=== PATIENT | female | born 1970 | race African-American/Black ===

== ENCOUNTER 2017-12-25 05:00 | Inpatient (IN) | payer BC ==
[2017-12-24 13:30] VITALS: BMI 36.1
[2017-12-25 09:19] LABS: ALBUMIN 3.4 g/dl (3.4-5.0); ALK PHOS 58 U/L (45-117); BILIRUBIN,DIRECT < 0.2 mg/dL (0.0-0.2); BILIRUBIN,TOTAL 0.1 mg/dL (0.2-1.0); SGOT/AST 23 U/L (15-37); SGPT/ALT 16 U/L (12-78); TOT PROT 6.5 g/dl (6.4-8.2)
[2017-12-25] MEDS ORDERED: DEXAMETHASONE SOD PHOSPHATE/PF 10 MG/ML SDV ONE (10:28)
[2017-12-25] MEDS ORDERED: ROPIVACAINE HCL 0.5% 30ML VIAL ONE (10:28)
[2017-12-25] MEDS ORDERED: MIDAZOLAM HCL 2 MG/2 ML SINGLE DOSE VIAL ONE ×3 (10:31→12:46)
[2017-12-25] MEDS ORDERED: IBUPROFEN 800 MG/8 ML IJ IVPB PRN (10:37)
[2017-12-25] MEDS ORDERED: ONDANSETRON 4 MG/2 ML VIAL IVPUSH PRN (10:37)
[2017-12-25] MEDS ORDERED: IBUPROFEN 600 MG TABLET (FP) PO PRN (10:37)
--- NOTE | 2017-12-25 10:37 | HP ---
History & Physical Update - History History: No Change - Physical Physical: No Change - Assessment Assessment: No Change - Plan Plan: No Change (History reviewed and unchanged from the one in the chart. Consent signed and witnessed)
[2017-12-25] MEDS ORDERED: PROPOFOL 20 ML ONE (12:46)
[2017-12-25] MEDS ORDERED: fentaNYL CITRATE 250 MCG/5 ML VIAL ONE (12:46)
[2017-12-25] MEDS ORDERED: ROCURONIUM BROMIDE 50 MG/5 ML VIAL ONE ×2 (12:47→13:26)
[2017-12-25] MEDS ORDERED: ceFAZolin SODIUM 1 GM VIAL IVPB ONE (12:49)
[2017-12-25] MEDS ORDERED: GLYCOPYRROLATE 0.2 MG/1 ML VIAL ONE (14:55)
[2017-12-25] MEDS ORDERED: ceFAZolin SODIUM 1 GM VIAL ONE (14:56)
[2017-12-25] MEDS ORDERED: DEXAMETHASONE SOD PHOSPHATE 4 MG/1 ML VIAL ONE (14:56)
[2017-12-25] MEDS ORDERED: NEOSTIGMINE METHYLSULFATE 0.5 MG/ML - 10 ML MDV ONE (14:56)
[2017-12-25] MEDS ORDERED: ETOMIDATE 20 MG/10 ML AMPUL IVPUSH ONE (14:56)
[2017-12-25] MEDS ORDERED: PROMETHAZINE HCL 25 MG/1 ML VIAL IVPB PRN (15:34)
[2017-12-25] MEDS ORDERED: LACTATED RINGERS SOLUTION 1,000 ML IV SCH (15:45)
--- NOTE | 2017-12-25 15:55 | OP ---
Operative Note - Note: Operative Date: 12/25/17 Pre-Operative Diagnosis: 47yo with large fibroid uterus, menorhagia, anemia Operation: Supracervical Hysterectomy, bilateral salpingectomy Findings: 25cm large adenomyotic fibroid uterus Sent to Path - grossly no evidence of sarcoma or Endometrial CA Post-Operative Diagnosis: Same as Pre-op Surgeon: Urvashi Wilder Dental Technician Metal: Tu Hope Anesthesia: General Specimens Removed: Uterus. Bilateral fallopian tubes Estimated Blood Loss (mls): 350 Drains, Volume Out (mls): 400 Fluid Volume Replaced (mls): 2,200 Operative Report Dictated: Yes
[2017-12-25] MEDS ORDERED: IBUPROFEN 800 MG/8 ML IJ IVPB ONE (16:05)
[2017-12-25] MEDS ORDERED: HYDROmorphone *PCA* 10MG/50ML DISP.SYRIN PCA ONE (17:58)
[2017-12-25] MEDS ORDERED: DEXAMETHASONE SOD PHOSPHATE 4 MG/1 ML VIAL IVPUSH ONE (18:06)
[2017-12-25] MEDS ORDERED: HYDROmorphone *PCA* 10MG/50ML DISP.SYRIN PCA SCH (18:15)
[2017-12-25] MEDS: ELECTROLYTE-148 SOLN 1,000 ML IV SCH (19:30)
--- NOTE | 2017-12-26 01:21 | OP ---
DATE OF OPERATION: 12/25/2017 PREOPERATIVE DIAGNOSIS: A 47-year-old female with large fibroid uterus, menorrhagia, anemia, adenomyosis. POSTOPERATIVE DIAGNOSIS: A 47-year-old female with large fibroid uterus, menorrhagia, anemia, adenomyosis. OPERATION: Supracervical hysterectomy and bilateral salpingectomy. SURGEON: Urvashi Wilder MD JOURNEYMAN SHEET METAL WORKER: Tu Hope MD ANESTHESIA: General. SPECIMENS REMOVED: Uterus and bilateral fallopian tubes. DESCRIPTION OF OPERATIVE PROCEDURE: After assuring informed consent, patient was brought to the operating room and after obtaining appropriate level of anesthesia, abdomen was prepped and draped in the sterile fashion. A Miller catheter was placed prior to prepping and draping. Subsequently, Pfannenstiel skin incision was created with a scalpel and extended bilaterally with scalpel and subsequently the subcutaneous layer was dissected to the level of the fascia with Bovie cautery. Fascia was incised and extended bilaterally with Bovie cautery and subsequently dissected anteriorly and superiorly with Bovie cautery. Muscle was in the midline, tented, and incised with Bovie cautery as well. Dissected inferiorly. Peritoneum was grasped with two Miley clamps and incised with Metzenbaum scissors with good visualization of underlying organs. Subsequently, peritoneal incision was extended superiorly and inferiorly with Bovie cautery. A bladder was retracted with Tari and the uterus was exteriorized. It was found to be approximately 25 cm tall and approximately 25 cm wide. The Deavers were used to retract neighboring organs. The round ligament on the right side was cauterized with LigaSure and LigaSure was also used to create the bowel flap and dissect the left-sided round ligament. The serosa was dissected around the uterine corpus and uteroovarian ligament was skeletonized by creating a window in the broad ligament. The right fallopian tube was dissected off of the right adnexa with LigaSure and subsequently the uteroovarian ligament was dissected off of the uterine corpus. The LigaSure was used and subsequently the uteroovarian ligament was clamped with Gilberto clamp, tied with 0 Vicryl, and suture ligated with 0 Vicryl, and tucked behind the bowel into the abdomen. Subsequently, the uterine artery on the right was skeletonized and clamped with Gilberto clamp, ligated with LigaSure and subsequently suture ligated as well with 0 Vicryl. A second clamp was placed to further dissect the uterine artery. It was dissected further off of the cervix with good visualization of the underlying organs and suture ligated with 0 Vicryl. Identical procedure was performed on the patient's left. The left fallopian tube was dissected off of the left adnexa and sent for permanent pathology and uteroovarian ligament was also dissected intact and suture ligated. Excellent hemostasis was achieved. The left uterine artery was also skeletonized and suture ligated with 0 Vicryl and dissected further with a second downward clamp with Gilberto and 0 Vicryl suture. Subsequently, bladder was further dissected off of the cervix. Uteroovarian ligaments were cauterized with LigaSure bilaterally. One more clamp was placed downward on the cervix and uterine artery was further deflected and that clamp was suture ligated as well on each side. Subsequently the uterus portion of the cervix was dissected off of the remaining cervical stump and sent for pathology. Excellent hemostasis was visualized. The cervical stump was oversewn with 0 Vicryl [id number]. Abdomen was subsequently irrigated. All pedicles were found to be hemostatic. Bilateral ureters were palpated and found to be normal in size, running its natural course. Peritoneum was sutured subsequently after all instruments and sponges were removed from the abdomen. The abdomen was found to be hemostatic. Peritoneum was closed with 0 Vicryl. Muscle was reapproximated at the midline with 0 Vicryl. Fascia was closed with 0 Vicryl as well in the running fashion. Subsequently, the subcutaneous tissue was reapproximated with 3-0 Vicryl subcutaneous and then subcuticular sutures were placed to decrease the space subcutaneously. Lastly, the V-Loc 90-inch 4 Biosyn was used to create a subcuticular closure. All instruments and sponges were counted several times and counts were correct. Estimated blood loss was 350 mL. Patient put out 400 mL of clear urine and received 2200 mL of IV fluids. She was subsequently extubated and brought to the recovery room in stable condition. Ottoniel [id number]
[2017-12-26] MEDS: CEFAZOLIN 1 GM/D5W 1 GM/50 ML BAG IVPB SCH ×3 (01:50→17:49)
[2017-12-26] MEDS: ENOXAPARIN NA (PORCINE) 30 MG/0.3 ML DISP.SYRIN SQ SCH ×2 (10:01→22:07)
[2017-12-26] MEDS: ELECTROLYTE-148 SOLN 1,000 ML IV SCH (10:01)
[2017-12-26 11:00] LABS: BASO % 0.2 % (0-2.0); EOS % 0.1 % (0-4.5); HEMOGLOBIN 9.6 GM/dL (10.7-15.3); LYMPH % 14.8 % (8-40); MCH 31.5 pg (25.7-33.7); MCHC 34.1 g/dl (32.0-36.0); MEAN CELL VOLUME 92.3 fl (80-96); MEAN PLT VOLUME 8.2 fl (7.5-11.1); MONO % 10.9 % (3.8-10.2); PLATELET COUNT 283 K/MM3 (134-434); RBC 3.03 M/mm3 (3.60-5.2); RDW 14.5 % (11.6-15.6); WHITE BLOOD COUNT 9.3 K/mm3 (4.0-10.0)
[2017-12-26] MEDS: oxyCODONE HCL 5 MG TABLET PO PRN (11:06)
--- NOTE | 2017-12-26 12:03 | PN ---
Progress Note, Physician Chief Complaint: She has no complains, voided, tolerated regular diet, pain is well controlled - Current Medication List Current Medications: Active Medications Bisacodyl (Dulcolax Suppository -) 10 mg [place] DAILY PRN PRN Reason: CONSTIPATION Enoxaparin Sodium (Lovenox -) 30 mg SQ BID JEFF Last Admin: 12/26/17 10:01 Dose: 30 mg Parenteral Electrolytes (Plasma-Lyte 148 -) 1,000 mls @ 125 mls/hr IV ASDIR JEFF Last Admin: 12/26/17 10:01 Dose: 125 mls/hr Cefazolin Sodium (Ancef 1 Gm Premixed Ivpb -) 1 gm in 50 mls @ 100 mls/hr IVPB Q8H-IV JEFF Stop: 12/26/17 18:29 Last Admin: 12/26/17 09:27 Dose: 100 mls/hr Ibuprofen (Motrin -) 600 mg PO Q6H PRN PRN Reason: FEVER Ibuprofen (Caldolor Injection -) 800 mg IVPB Q6H PRN PRN Reason: Fever - If PO not effective. Last Admin: 12/25/17 16:06 Dose: 800 mg Ondansetron HCl (Zofran Injection) 4 mg IVPUSH Q6H PRN PRN Reason: NAUSEA Oxycodone HCl (Roxicodone -) 5 mg PO Q4H PRN PRN Reason: PAIN LEVEL 1-5 Last Admin: 12/26/17 11:06 Dose: 5 mg - Objective Vital Signs: Vital Signs Temperature 97.9 F 12/26/17 09:00 Pulse Rate 82 12/26/17 09:00 Respiratory Rate 20 12/26/17 09:00 Blood Pressure 109/69 12/26/17 09:00 O2 Sat by Pulse Oximetry (%) 98 12/26/17 09:00 Constitutional: Yes: Well Nourished Eyes: Yes: WNL, Conjunctiva Clear HENT: Yes: WNL, Atraumatic, Normocephalic Neck: Yes: WNL, Supple, Trachea Midline Cardiovascular: Yes: WNL, Regular Rate and Rhythm Respiratory: Yes: WNL, Regular, CTA Bilaterally Genitourinary: Yes: WNL, Other (spotting) Edema: No Integumentary: Yes: WNL Wound/Incision: Yes: Clean/Dry Neurological: Yes: WNL, Alert, Oriented ...Motor Strength: WNL Psychiatric: Yes: WNL, Alert, Oriented Labs: CBC, BMP 12/26/17 10:20 Assessment/Plan 47yo POD # 1 s/p JEFF/Bilateral salpingectomy for Adenomyosis, anemia, menorrhagia, fibroid uterus VSS, Afebrile Doing well H/H appropriate drop no signs or symptoms of infection [place] ambulation, and incentive spiromiter cont. routine post op care
[2017-12-26] MEDS: BISACODYL 10 MG SUPP.RECT PR PRN (14:11)
[2017-12-27] MEDS: oxyCODONE HCL 5 MG TABLET PO PRN ×3 (00:44→12:47)
[2017-12-27] MEDS: BISACODYL 10 MG SUPP.RECT PR PRN (05:59)
--- NOTE | 2017-12-27 09:13 | PN ---
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
[2017-12-27] MEDS: ENOXAPARIN NA (PORCINE) 30 MG/0.3 ML DISP.SYRIN SQ SCH (10:02)
[2017-12-27 13:22] VITALS: BP 136/73; PULSE 86; TEMP 98.6
--- NOTE | 2017-12-27 14:01 | DS ---
Physical Examination Vital Signs: Vital Signs Temperature 98.6 F 12/27/17 13:20 Pulse Rate 86 12/27/17 13:20 Respiratory Rate 18 12/27/17 13:20 Blood Pressure 136/73 12/27/17 13:20 O2 Sat by Pulse Oximetry (%) 97 12/27/17 09:00 Constitutional: Yes: Well Nourished, No Distress, Calm Eyes: Yes: WNL HENT: Yes: WNL, Atraumatic, Normocephalic Neck: Yes: WNL, Supple, Trachea Midline Cardiovascular: Yes: WNL, Regular Rate and Rhythm Respiratory: Yes: WNL, Regular, CTA Bilaterally Gastrointestinal: Yes: WNL, Normal Bowel Sounds, Soft Musculoskeletal: Yes: WNL Extremities: Yes: WNL Integumentary: Yes: WNL Wound/Incision: Yes: Clean/Dry, Well Approximated Neurological: Yes: WNL, Alert, Oriented ...Motor Strength: WNL Psychiatric: Yes: WNL, Alert, Oriented Labs: CBC, BMP 12/26/17 10:20 Discharge Summary Reason For Visit: MENORRHAGIA, FIBROIDS UTERUS Condition: Good - Instructions Diet, Activity, Other Instructions: Dr. Urvashi Wilder Mobile Battery Technician discharge instructions Physical activity Resume your normal everyday activity as tolerated no heavy lifting or exercise until seen by your surgeon. You may walk unlimited rose of and climb stairs. You may resume driving the car when you feel safe and comfortable behind the wheel. No sexual activity as instructed by Dr. Wilder. Wound care If you have a bandage, leave it on, and keep dry for 48-72 hours. After that time discard the outer bandage. If they are tapes on the skin under the out of bandage leave them in place. They will peel off in the next 7 to 10 days. Do Not Peel them off. You may shower the day after surgery. If there are tapes present on the skin, you may shower over them. Diet There are no dietary restrictions. Eat healthy, high-fiber foods. Drink 6 to 8 glasses of liquid each day. This will assist in keeping your bowels are regular. Pain management You may take Tylenol or acetaminophen or Ibuprofen (for example, Motrin, Advil etc.) from my pain prescription medication is ordered should be taken as prescribed for moderate to severe pain. Call Dr. Wilder for any of the following: Severe pain not relieved by medication Fever of 101 or higher Excessive bleeding or drainage on dressing Inability to urinate Call the office at [phone] for an appointment in seven days. Referrals: Urvashi Wilder MD [Staff Physician] - Disposition: HOME - Home Medications Comprehensive Discharge Medication List: Ambulatory Orders Multivitamin [One Daily] 1 each PO DAILY 12/24/17
[2017-12-27] MEDS: ELECTROLYTE-148 SOLN 1,000 ML IV SCH (15:30)
--- NOTE | 2017-12-28 10:22 | PATH ---
Surgical Pathology Report Patient Name: RAYA MARTINES [facility]. Rec. #: [id number] /Age/Gender: 1970 (Age: 47) / F Account: [id number] Location: [address] [place] [address] Taken: 12/25/2017 Received: 12/25/2017 Reported: 12/28/2017 Physicians: Urvashi Wilder M.D. Specimen(s) Received A: UTERUS AND CERVIX B: RIGHT FALLOPIAN TUBE WITH CYST C: LEFT FALLOPIAN TUBE Clinical History Menorrhagia, fibroid uterus Intraoperative Consult Diagnosis Uterus for FS: Favor leiomyoma on territory representative sections. No gross endometrial mass/lesion identified Dr. Kennedy, 12/25/2017 Final Diagnosis A. UTERUS AND CERVIX, SUPRACERVICAL HYSTERECTOMY(FS): INTRAMURAL LEIOMYOMA(TA). PROLIFERATIVE ENDOMETRIUM. ACUTE CERVICITIS AND FOCAL MICROGLANDULAR HYPERPLASIA. B. FALLOPIAN TUBE, RIGHT,? CYST, SALPINGECTOMY: FALLOPIAN TUBE RIGHT (INCLUDING FULL LUMINAL PORTION) WITH PARATUBAL CYST. C. FALLOPIAN TUBE, LEFT, SALPINGECTOMY: FALLOPIAN TUBE (INCLUDING FULL LUMINAL PORTION) WITH VASCULAR CONGESTION. Electronically Signed Pallavi Beasley M.D. Gross Description A. Received fresh labeled "uterus (fresh) part of cervix" is a 1612 gram apparent supracervical hysterectomy specimen measuring approximately 20 x 16 x 15 cm. The uterine serosa is smooth and glistening. The specimen is opened and multiple whorled myometrial nodules are noted bulging through the myometrium. The largest piece measures approximately 8.8 cm in greatest dimension. The endometrium is 0.1-0.2 cm thick, with a uniform weller surface. Areas of hemorrhage or necrosis are not identified. Scrum Product Owner sections are submitted as follows 1- cervix; 2 through 4- endomyometrium; 5 and 6-smaller myometrial nodules; 7 through 10-territory representative sections of largest myometrial nodule. B. Received fresh labelled "right tube? cyst" is a 7.2 cm long by 1.2 cm in diameter portion of tissue consistent with a portion of fallopian tube. The fimbriated end is present. Clear fluid-filled paratubal cystic spaces are present, measuring up to 1.4 cm in greatest dimension. No focal lesions are identified. Scrum Product Owner sections are submitted in one cassette. C. Received fresh labelled "left tube" is a 5.8 cm long by 1.0 cm in diameter portion of tissue consistent with a portion of fallopian tube. The fimbriated end is present No focal lesions are identified. Scrum Product Owner sections are submitted in one cassette. [facility]/12/26/2017 [facility]/12/26/2017
== END 2017-12-27 15:30 | disposition home or self-care (01) | DRG 743 ==
LOC: JSAMEDAYSX 05:00 → EDSTATUS 10:47 → J6S 20:10
PROVIDERS: ADMIT Obstetrics & Gynecology; ATTEND Obstetrics & Gynecology
PROC: 0UT70ZZ Resection of Bilateral Fallopian Tubes, Open Approach (ICD-10-PCS; 2017-12-25)
PROC: 0UT90ZL Resection of Uterus, Supracervical, Open Approach (ICD-10-PCS; principal; 2017-12-25 10:30)
DX: D25.1 Intramural leiomyoma of uterus (principal); N80.0 Endometriosis of uterus; N92.0 Excessive and frequent menstruation with regular cycle; D64.9 Anemia, unspecified; N72 Inflammatory disease of cervix uteri
CPT/HCPCS: 36415; 80076; 85025; 86850; 86900; 86901; 94760

== ENCOUNTER 2020-11-01 12:46 | Emergency (ER) | payer BC, OTHER ==
[2020-11-01 13:07] VITALS: BP 105/73; PULSE 84; TEMP 98; BMI 34.8
== END 2020-11-01 13:42 | disposition home or self-care (01) ==
LOC: JERFT 12:46
DX: M79.10 Myalgia, unspecified site (principal)
CPT/HCPCS: 99281-25